=== PATIENT | male | born 1990 | race Caucasian/White ===

== ENCOUNTER 2018-02-04 12:34 | Emergency (ER) | payer OTHER ==
[~2018-02-04] VITALS: Ht 203.2 cm; Wt 145.2 kg
[~2018-02-04 12:34] MED LIST: ALBU90OI INH; AZIT250 PO; Amoxicillin500 MG PO; CLON.1 PO; CLON.3; CLON.5 PO; CLONIDINE; CODACE30 PO; CODGUAEL PO; HYDACE5 PO; IBUP600 PO; IBUP800 PO; MONDOXYNE NL100 MG PO; NAPR500 PO; Norco 5-325 Ta1 EACH PO; OFLO.3OTSO RIGHTEAR; PROM25 PO
[2018-02-04] MEDS ORDERED: Augmentin 875-1 EACH PO (14:07)
== END 2018-02-04 14:15 | disposition home or self-care (01) ==
LOC: ER 12:34
DX: H66.91 Otitis media, unspecified, right ear (principal)
CPT/HCPCS: 99282

== ENCOUNTER 2019-05-16 15:01 | Emergency (ER) | payer MEDICARE, OTHER ==
[~2019-05-16] VITALS: Ht 203.2 cm; Wt 115.2 kg
[~2019-05-16 15:01] MED LIST changes: +Augmentin 875-1 EACH PO
[2019-05-16] MEDS ORDERED: Zantac150 MG PO (16:05)
== END 2019-05-16 16:11 | disposition home or self-care (01) ==
LOC: ER 15:01
DX: S60.211A Contusion of right wrist, initial encounter (principal); S50.11XA Contusion of right forearm, initial encounter; W18.30XA Fall on same level, unspecified, initial encounter
CPT/HCPCS: 29125; 73110; 99283-25

== ENCOUNTER → 2024-02-28 | Outpatient (CLI) | payer MEDICARE, OTHER ==
[~2024-02-28] MED LIST changes: +Zantac150 MG PO
== END | disposition home or self-care (01) ==
LOC: LAB 12:36 → LAB SHORT 12:36
DX: H60.311 Diffuse otitis externa, right ear (principal)
CPT/HCPCS: 87070; 87205